=== PATIENT | male | born 1935 | race Caucasian/White ===

== ENCOUNTER 2017-02-03 15:53 | Inpatient (IN) ==
[2017-02-03] MEDS ORDERED: methylPREDNISolone 125 MG/2 ML VIAL IVP ONE (16:08)
[2017-02-03] MEDS ORDERED: Ipratropium/Albuterol Neb 3 ML IH ONE (16:08)
--- NOTE | 2017-02-03 16:14 | Emergency Department Note ---
Disposition Clinical Impression: Elevated troponin Community acquired pneumonia Qualifiers: Laterality: unspecified laterality Qualified Code(s): J18.9 - Pneumonia, unspecified organism Disposition: Admitted As Inpatient Condition: Fair SOB HPI - General Chief Complaint: ED Shortness of Breath/Dyspnea Stated Complaint: LIGIA Time Seen by Provider: 02/03/17 16:00 Source: patient Mode of arrival: private vehicle Limitations: no limitations Nursing Notes Reviewed: Yes Vital Signs Reviewed: Yes - History of Present Illness 81-year-old male history of CHF, COPD no oxygen dependency, status post CABG 6 years ago who presents to the emergency department with a chief complaint shortness of breath. Patient states he has baseline dyspnea reports a worsened 4 days ago. States that he has had worsening shortness of breath whenever he walks or does any activity. He reports fevers up to 102 at home over the last 4 days as well as productive cough with green sputum. He called his regular provider last night who called him in doxycycline for which he started. He denies a prior history of admission for respiratory issues. He does not wear oxygen at home. His was recently sick with similar symptoms. No chest pain, nausea, vomiting, diarrhea. No history of DVT or PE. Has a history of prostate cancer but is not treated by radiation or chemotherapy. Pt Subjective Complaint: shortness of breath Onset (ago): day(s) Context: recent illness Severity: moderate Consistency/Duration: constant Improves with: nothing, rest Worsens with: exertion Known history of: COPD, congestive heart failure Associated symptoms: Reports: fever, cough, sputum production. Denies: chest pain Treatment prior to arrival: none Cough present: Yes Cough Description: Involuntary Cough Frequency: Intermittent Sputum production: Yes - Related Data Home oxygen amount: none Home Medications Medication Instructions Recorded Confirmed Albuterol Neb [Proventil Neb] 2.5 mg IH TID 02/03/17 02/03/17 Albuterol Sulfate [Proair Hfa] 2 puff IH Q4H PRN 02/03/17 02/03/17 Aspirin Enteric Coated [Aspirin EC] 81 mg PO DAILY 02/03/17 02/03/17 Budesonide/Formoterol 160/4.5 2 puff IH BIDR 02/03/17 02/03/17 [Symbicort 160/4.5] Cetirizine HCl [Zyrtec] 10 mg PO DAILY 02/03/17 02/03/17 Cholecalciferol (D-3) [Vitamin D] 2,000 unit PO DAILY 02/03/17 02/03/17 Doxycycline Hyclate 100 mg PO BID 02/03/17 02/03/17 Furosemide [Lasix] 20 mg PO BID 02/03/17 02/03/17 Guaifenesin [Mucinex] 600 mg PO Q12H PRN 02/03/17 02/03/17 Insulin Glargine,Hum.rec.anlog 80 unit SQ DAILY 02/03/17 02/03/17 [Lantus Solostar] Losartan Potassium [Cozaar] 50 mg PO DAILY 02/03/17 02/03/17 Metoprolol [Lopressor] 12.5 mg PO BID 02/03/17 02/03/17 Pantoprazole Sodium [Protonix] 40 mg PO DAILY 02/03/17 02/03/17 Pravastatin Sodium [Pravachol] 20 mg PO HS 02/03/17 02/03/17 SitaGLIPtin [Januvia] 100 mg PO DAILY 02/03/17 02/03/17 Tamsulosin [Flomax] 0.4 mg PO DAILY 02/03/17 02/03/17 Tiotropium [Spiriva] 18 mcg IH 0700 02/03/17 02/03/17 Warfarin [Coumadin] 2 mg PO 1800 02/03/17 02/03/17 glyBURIDE [GlyBURIDE] 10 mg PO BIDWM 02/03/17 02/03/17 Allergies Allergy/AdvReac Type Severity Reaction Status Date / Time No Known Allergies Allergy Verified 02/03/17 15:58 All systems ED: reviewed and negative except as stated. Constitutional: Reports: fever Cardiovascular: Denies: chest pain Respiratory: Reports: cough, dyspnea, sputum production Gastrointestinal: Denies: abdominal pain, nausea, vomiting, diarrhea Past Medical History - Past Medical History Attestation: Yes The following information was validated with the patient. Source: patient Medical history: Reports: atrial fibrillation, COPD, diabetes, hyperlipidemia, hypertension Surgical history: Reports: appendectomy, cholecystectomy, coronary bypass (CABG) , herniorrhaphy Psychiatric history: Reports: no psych history - Social History Smoking Status: Former smoker Smokeless Tobacco Status: No Alcohol use: Reports: none Drug use: Reports: none Physical Exam - General Limitations: no limitations General appearance: alert, in distress - Head Head exam: atraumatic, normocephalic, normal inspection - Eye Eye exam: Present: normal appearance, EOMI - ENT ENT exam: normal exam - Neck Neck exam: Present: normal inspection - Chest Chest inspection: Present: normal inspection, symmetric chest wall rise - Respiratory Respiratory exam: Present: wheezes (Diffuse end expiratory wheezing with diminished breath sounds bilaterally) - Cardiovascular Cardiovascular exam: Present: regular rate, normal rhythm, normal heart sounds - Abdominal Exam Abdominal exam: Present: soft, Non-Tender. Absent: tenderness - Extremities Exam Extremities exam: Present: normal inspection, full ROM - Expanded Upper Extremity Exam Shoulder exam: Present: normal inspection, full ROM Arm exam: Present: normal inspection, full ROM Elbow exam: Present: normal inspection, full ROM Forearm/Wrist exam: Present: normal inspection, full ROM Hand exam: Present: normal inspection, full ROM - Expanded Lower Extremity Exam Hip/Pelvis exam: Present: normal inspection, full ROM Upper leg exam: Present: normal inspection, full ROM Knee exam: Present: normal inspection, full ROM Lower leg exam: Present: normal inspection, full ROM Ankle exam: Present: normal inspection, full ROM Foot/toe exam: Present: normal inspection, full ROM Neurovascular/Tendon exam: Absent: motor deficit, sensory deficit - Neurological Exam Neurological exam: Present: alert - Psychiatric Psychiatric exam: Present: normal affect - Skin Skin exam: Present: warm, dry, intact Course Course Narrative: Patient seen and examined. 94% on room air. Is working moderately hard to breathe. Plan obtain an EKG, chest x-ray as well as labs including troponin and BNP. We will also check him for influenza as he reports his significant other recently was ill. Patient will likely require admission. - Reevaluation(s) Reevaluation #1: Patient's troponin elevated over 0.1. Aspirin ordered. Chest x-ray reviewed showing bilateral pleural effusions with consolidative findings. Patient will be treated for community-acquired pneumonia with Rocephin and Zithromax. Vital Signs Temperature 97.3 F L 02/03/17 15:56 Pulse Rate 99 02/03/17 15:56 Respiratory Rate 44 02/03/17 15:56 Blood Pressure 167/94 02/03/17 15:56 O2 Sat by Pulse Oximetry 94 02/03/17 15:56 Temperature 98.0 F 02/03/17 19:22 Pulse Rate 95 02/03/17 19:22 Respiratory Rate 16 02/03/17 19:22 Blood Pressure 129/82 02/03/17 19:22 O2 Sat by Pulse Oximetry 91 02/03/17 19:22 Oxygen Delivery Oxygen Delivery Room Air Shortness of Breath/Dyspnea - MDM Narrative Medical decision making narrative: 81-year-old male presents to the ER due to shortness of breath for 4 days. Has had a fever and cough at home. with recent illness. He is well-appearing here with some mild respiratory distress. EKG demonstrates no acute ischemic findings. Chest x-ray with bilateral effusions and consolidative findings. Given his recent illness we will treat him for community acquired pneumonia. Patient given Rocephin and Zithromax as well as DuoNeb treatments and steroids. Noted to have an elevated troponin, given aspirin in the ED. Patient admitted to the hospitalist service. - Lab Data Lab results reviewed: Yes I reviewed the patient's lab results. Result diagrams: 02/03/17 16:25 02/03/17 16:25 Lab Results 02/03/17 02/03/17 02/03/17 Range/Units 16:25 16:25 16:25 WBC 7.9 (4.3-11.1) K/mcL RBC 4.51 (4.19-5.50) M/mcL Hgb 11.2 L (12.9-16.9) g/dL Hct 36.3 L (37.5-50.1) % MCV 80.5 L (83.0-100.0) fL MCH 24.8 L (28.0-33.3) pg MCHC 30.9 L (31.6-35.5) g/dL RDW 16.3 H (11.5-14.5) % Plt Count 366 (140-400) K/mcL MPV 9.1 L (9.4-12.4) fL Immature Gran % 0.3 (0-4) % Seg Neutrophils % 79.8 % Lymphocytes % 9.5 % Monocytes % 7.6 % Eosinophils % 2.3 % Basophils % 0.5 % Neutrophils # 6.3 (1.6-8.9) K/mcL Lymphocytes # 0.8 (0.6-4.6) K/mcL Monocytes # 0.6 (0.0-1.3) K/mcL Eosinophils # 0.2 (0.0-0.6) K/mcL Basophils # 0.0 (0.0-0.2) K/mcL PT (9.4-12.1) Seconds INR Sodium 139 (136-145) mEq/L Potassium 4.3 (3.5-5.1) mEq/L Chloride 106 (98-107) mEq/L Carbon Dioxide 27 (23-29) mEq/L BUN 20 (8-23) mg/dL Creatinine 1.42 H (0.70-1.30) mg/dL Est GFR ( Amer) 58 L (> 60) Est GFR (Non-Af Amer) 48 L (> 60) BUN/Creatinine Ratio 14 (6-26) Glucose 211 H (70-105) mg/dL Calculated Osmolality 297 (280-300) Calcium 9.2 (8.6-10.3) mg/dL Troponin I 0.13 H* (< 0.04) ng/mL B-Natriuretic Peptide (Less than 100) pg/mL 02/03/17 02/03/17 Range/Units 16:25 16:25 WBC (4.3-11.1) K/mcL RBC (4.19-5.50) M/mcL Hgb (12.9-16.9) g/dL Hct (37.5-50.1) % MCV (83.0-100.0) fL MCH (28.0-33.3) pg MCHC (31.6-35.5) g/dL RDW (11.5-14.5) % Plt Count (140-400) K/mcL MPV (9.4-12.4) fL Immature Gran % (0-4) % Seg Neutrophils % % Lymphocytes % % Monocytes % % Eosinophils % % Basophils % % Neutrophils # (1.6-8.9) K/mcL Lymphocytes # (0.6-4.6) K/mcL Monocytes # (0.0-1.3) K/mcL Eosinophils # (0.0-0.6) K/mcL Basophils # (0.0-0.2) K/mcL PT 25.8 H (9.4-12.1) Seconds INR 2.4 Sodium (136-145) mEq/L Potassium (3.5-5.1) mEq/L Chloride (98-107) mEq/L Carbon Dioxide (23-29) mEq/L BUN (8-23) mg/dL Creatinine (0.70-1.30) mg/dL Est GFR ( Amer) (> 60) Est GFR (Non-Af Amer) (> 60) BUN/Creatinine Ratio (6-26) Glucose (70-105) mg/dL Calculated Osmolality (280-300) Calcium (8.6-10.3) mg/dL Troponin I (< 0.04) ng/mL B-Natriuretic Peptide 180 H (Less than 100) pg/mL - Radiology Data Radiology results reviewed: Yes I reviewed the patient's radiology results. Chest X-Ray 02/03/17 16:08 IMPRESSION: 1. Stable cardiomegaly and chronic pulmonary venous hypertension. 2. New mild bilateral pleural effusions and lung base consolidation. The consolidative changes could represent atelectasis and/or pneumonia. D/ / 02/03/2017 16:50:18 Aba Allen MD / shwetha Interpreting Provider: Aba Allen MD - EKG Data EKG attestation: Yes I reviewed and interpreted this EKG. EKG results narrative: EKG demonstrates an ectopic atrial rhythm with a rate of 96 bpm. Normal axis. Normal intervals. Normal R-wave progression. Nonspecific ST-T wave changes in the inferior leads. No gross ST elevations or depressions. No acute ischemic findings. No significant changes from previous EKG dated 06/19/15. S.B.A.R. - Meghan.Rodolfo.AKamran Situation: Demographics, MOA Background: Presenting Complaint, Relevant PMH, Meds, & Allergies Assessment: Course and respsone to treatment, Patient/Family Expectation Recommendation: Barrier(s) to disposition, Recommendation based on pending studies, treatments, or consults S.B.AKamran Report Given to: Dr. Jeannie Willingham Repor Time: 17:57 Attestation Statement - Attestation Attestation: I, Mars Thomas DO, examined this patient [id number] and my medical decision-making was reviewed with Dr. Vidal Benjamin, Resident Physician. I agree with the documented findings, disposition and treatment plan as described except to the extent set forth below. Please see my progress notes for details. 81-year-old male presents to emergency room with complaint of shortness of breath. Symptoms of been coming on over the last several days. Patient is described productive cough and a fever of 102 at home. Patient was started on doxycycline medication yesterday by his primary care provider. Denies any other illness or symptoms at this time. Currently denying chest pain fevers chills nausea vomiting or diarrhea. Denies headache or vision changes this time. Patient's main complaint is progressive worsening exertional dyspnea. Patient has a history of pleural effusions. Chest x-ray EKG labs including troponin and BNP ordered at this time for evaluation of cardiac and pulmonary source of the symptoms. Patient is concerning for infectious etiology antibiotic regimen will be started as needed. Vital signs reviewed and otherwise unremarkable this point. Physical exam shows well. Male who is sitting upright in the bed. He has some shortness of breath while lying flat. Lungs are clear on initial evaluation there is no coarse breath sounds noted. Heart is regular with no murmurs. His intermittent cardiac irregularity consistent with his atrial fibrillation. He is currently on Coumadin so coagulation studies were ordered and will be resulted. Abdomen is soft nontender nondistended with no guarding or rigidity. Patient was offered from his upper procedures and laboratory in the emergency room but did have shortness of breath. He does not have any significant signs of pitting edema or fluid buildup in the lower extremities at this time. We will continue to monitor his treatment course is completed. The patient will need admission for what appears to be congestive heart failure/COPD exacerbation on with potential progression of his cardiac related disease. He does have a history of a CABG but again is denying any chest pain. No aggressive cardiac intervention will be started at this point. Disposition pending workup and treatment course. See detailed documentation of the physical exam, medical intervention, medical decision-making, disposition the resident physician no. 40 minutes of critical care participation this time. 1800 Patient on multiple medical issues including bilateral pneumonia, new onset effusions, elevated troponin, elevated BNP. All the symptoms are consistent with CHF exacerbation secondary to respiratory infection. Antibiotic regimen started. Patient was given aspirin. He has remained chest pain-free and denied any chest pain throughout the entire course of care this time. EKG shows atrial fibrillation with no acute signs of ST segment elevation. Patient will be admitted to hospitals for definitive management of what appears to be pulmonary infection causing cardiac abnormality.
[2017-02-03 16:35] LABS: Basophils % 0.5 %; Eosinophils # 0.2 K/mcL (0.0-0.6); Eosinophils % 2.3 %; Hematocrit 36.3 % (37.5-50.1); Hemoglobin 11.2 g/dL (12.9-16.9); Immature Granulocytes % 0.3 % (0-4); Lymphocytes # 0.8 K/mcL (0.6-4.6); Lymphocytes % 9.5 %; Mean Corpuscular HGB Conc 30.9 g/dL (31.6-35.5); Mean Corpuscular Hemoglobin 24.8 pg (28.0-33.3); Mean Corpuscular Volume 80.5 fL (83.0-100.0); Mean Platelet Volume 9.1 fL (9.4-12.4); Monocytes # 0.6 K/mcL (0.0-1.3); Monocytes % 7.6 %; Neutrophils # 6.3 K/mcL (1.6-8.9); Platelet Count 366 K/mcL (140-400); Red Blood Count 4.51 M/mcL (4.19-5.50); Red Cell Distribution Width 16.3 % (11.5-14.5); Segmented Neutrophils % 79.8 %
[2017-02-03 16:50] LABS: Calcium 9.2 mg/dL (8.6-10.3); INR 2.4; Potassium 4.3 mEq/L (3.5-5.1); Prothrombin Time 25.8 Seconds (9.4-12.1)
[2017-02-03] MEDS ORDERED: Aspirin 81 MG TAB.CHEW PO ONE (17:15)
[2017-02-03] MEDS ORDERED: cefTRIAXone 1,000 MG in Water for inj. (sterile) 10 ML IVP ONE (17:15)
[2017-02-03] MEDS ORDERED: Azithromycin 500 MG in D5% in Water 250 ML IVPB ONE (17:15)
[2017-02-03] MEDS ORDERED: Ondansetron ODT 4 MG TAB.RAPDIS SL PRN (20:19)
[2017-02-03] MEDS ORDERED: Acetaminophen 325 MG TABLET PO PRN (20:19)
[2017-02-03] MEDS ORDERED: Naloxone 0.4 MG/ML INJ IVP PRN (20:19)
[2017-02-03] MEDS ORDERED: Albuterol 2.5 MG/3 ML NEBULIZER IH PRN (20:21)
[2017-02-03] MEDS ORDERED: D5% in Water 1,000 ML IVC PRN (20:26)
[2017-02-03] MEDS ORDERED: *HR* Dextrose 50 % in Water (Syg) 50 ML SYRINGE IVP PRN (20:27)
[2017-02-03] MEDS ORDERED: Dextrose Gel 15 GM/37.5 ML TUBE PO PRN ×2 (20:27)
[2017-02-03] MEDS ORDERED: Insulin DETEMIR 100 UNIT/ML X5UNITS SQ SCH (21:00)
[2017-02-03] MEDS ORDERED: *HR* Warfarin 2 MG TABLET PO ONE (21:15)
--- NOTE | 2017-02-03 22:41 | Internal Med History&Physical ---
<Jennifer Gonzalez - Last Filed: 02/03/17 23:00> Date of Encounter: 02/03/17 Time of Encounter: 21:30 Assessment and Plan (1) Community acquired pneumonia Current visit: Yes Status: Acute Has been experiencing cough with green sputum production as well as short of breath or dyspnea fevers at home. Chest x-ray suggestive of pneumonia. Blood cultures were Steve patient was placed on vancomycin and Zosyn. We will perform MRSA swab and also check for possible aspiration and nothing by mouth for now and consult speech therapy for evaluation if negative-DC Zosyn and place on Rocephin Continue with oxygen titrated to maintain SPO2 greater than 92% Bronchodilators Qualifiers: Laterality: unspecified laterality Qualified Code(s): J18.9 - Pneumonia, unspecified organism (2) Elevated troponin Current visit: Yes Status: Acute Presently patient has not complained of any chest pain no ST-T wave abnormalities on EKG. We will continue to trend troponins Consult cardiology (3) Atrial fibrillation Current visit: Yes Status: Acute Presently controlled rate Continue with beta ana and Coumadin check INR daily to maintain INR 2-3 Qualifiers: Atrial fibrillation type: chronic Qualified Code(s): I48.2 - Chronic atrial fibrillation (4) Diabetes mellitus Current visit: No Status: Chronic Corky patient nothing by mouth for swine evaluation Accu-Cheks every 6 hours sliding scale insulin Qualifiers: Diabetes mellitus type: type 2 Diabetes mellitus complication status: without complication Diabetes mellitus correction insulin use: with correction use Qualified Code(s): E11.9 - Type 2 diabetes mellitus without complications ; Z79.4 - ferry terminal supervisor (current) use of insulin; Z79.4 - correction (current) use of insulin; Z79.4 - ferry terminal supervisor (current) use of insulin; Z79.4 - correction ( current) use of insulin (5) Hypertension Current visit: Yes Status: Chronic Presently controlled we will continue with Lasix and by mouth ana Qualifiers: Hypertension type: essential hypertension Qualified Code(s): I10 - Essential (primary) hypertension (6) DVT prophylaxis Current visit: Yes Status: Acute Patient is on Coumadin Internal Medicine - H&P: HPI Chief complaint: SOB Admitted From: Emergency Dept Plans for Post Hospital Care: Home History of present illness: Mr. Kirkland is a 81 year old male past medical history of CHF COPD non-oxygen dependent status post CABG approximately 6 years ago atrial fibrillation on Coumadin diabetes hyperlipidemia hypertension. According to the patient approximate 12 days ago he was diagnosed with the flu and was treated per his PCP. He was doing well up until approximate 4 days ago when he began to experiencing increasing shortness of breath on exertion. He also reports fevers up to 102 over the past 4 days as well as a productive cough with green sputum. He does admit that his has also been ill with similar symptoms He did call his PCP who did prescribe him doxycycline, however symptoms have not improved. He denies any chest pain nausea vomiting or diarrhea. He presented to the ER with the above complaints. It appears that on chest x-ray patient does have bilateral mild pleural effusions as well as lower lung base consolidations which could represent atelectasis and/or pneumonia. No leukocytosis troponin was 0.13 on presentation blood cultures were drawn and patient was given empiric antibiotics. He has been admitted for further workup and evaluation Past Med Surg Social Fam HX - Past Medical History Medical history: atrial fibrillation, COPD, diabetes, hyperlipidemia, hypertension Psychiatric history: no psych history - Past Surgical History Surgical History: appendectomy, cholecystectomy, coronary bypass (CABG), herniorrhaphy - Social History Smoking Status: Former smoker Smokeless Tobacco Status: No Alcohol use: none Drug use: none - Family History Sister Adopted: No Living Status: Age at : 86 Cause of : DC Hx Family Cardiac Disorders: Yes Hx Family Endocrine Disorder: Yes (DM) Internal Medicine - H&P: Meds Albuterol Neb [Proventil Neb] 2.5 mg IH TID 02/03/17 [History] Albuterol Sulfate [Proair Hfa] 2 puff IH Q4H PRN 02/03/17 [History] Aspirin Enteric Coated [Aspirin EC] 81 mg PO DAILY 02/03/17 [History] Budesonide/Formoterol 160/4.5 [Symbicort 160/4.5] 2 puff IH BIDR 02/03/17 [ History] Cetirizine HCl [Zyrtec] 10 mg PO DAILY 02/03/17 [History] Cholecalciferol (D-3) [Vitamin D] 2,000 unit PO DAILY 02/03/17 [History] Doxycycline Hyclate 100 mg PO BID 02/03/17 [History] Furosemide [Lasix] 20 mg PO BID 02/03/17 [History] Guaifenesin [Mucinex] 600 mg PO Q12H PRN 02/03/17 [History] Insulin Glargine,Hum.rec.anlog [Lantus Solostar] 80 unit SQ DAILY 02/03/17 [ History] Losartan Potassium [Cozaar] 50 mg PO DAILY 02/03/17 [History] Metoprolol [Lopressor] 12.5 mg PO BID 02/03/17 [History] Pantoprazole Sodium [Protonix] 40 mg PO DAILY 02/03/17 [History] Pravastatin Sodium [Pravachol] 20 mg PO HS 02/03/17 [History] SitaGLIPtin [Januvia] 100 mg PO DAILY 02/03/17 [History] Tamsulosin [Flomax] 0.4 mg PO DAILY 02/03/17 [History] Tiotropium [Spiriva] 18 mcg IH 0700 02/03/17 [History] Warfarin [Coumadin] 2 mg PO 1800 02/03/17 [History] glyBURIDE [GlyBURIDE] 10 mg PO BIDWM 02/03/17 [History] 3 Allergy/AdvReac Type Severity Reaction Status Date / Time No Known Allergies Allergy Verified 02/03/17 15:58 All Systems PM: A 10-system review of systems was performed and is negative for pertinent findings except as documented above in the HPI. - Constitutional Constitutional: fever(s), no chills, no night sweats - EENT Eyes: no change in vision, no discharge, no pain, no photophobia Nose, mouth and throat: no dysphagia, no nasal discharge, no neck pain, no sore throat - Cardiovascular Cardiovascular ROS IM: no chest pain, no diaphoresis, no dyspnea, no lightheadedness, no palpitations, no syncope - Respiratory Respiratory: cough, dyspnea on exertion, change in phlegm color, no dyspnea, no wheezing, no excessive phlegm production - Gastrointestinal Gastrointestinal: no abdominal pain, no diarrhea, no hematemesis, no hematochezia, no melena, no nausea, no vomiting - Musculoskeletal Musculoskeletal ROS IM: no numbness, no tingling - Integumentary Integumentary IM: no rash, no unusual bruising - Neurological Neurological ROS: no confusion, no convulsions, no focal weakness, no numbness, no tingling, no tremor(s) - Hematologic/Lymphatic Hematologic/Lymphatic: no easy bruising - Constitutional Vitals: Temp Pulse Resp BP Pulse Ox 97.5 F L 94 16 166/73 94 02/03/17 22:34 02/03/17 22:34 02/03/17 22:34 02/03/17 22:34 02/03/17 22:34 General appearance: Present: A&O X 3 - Head Head exam: Present: atraumatic, normocephalic - Eye Eye exam: Present: PERRL, conjuntiva pink, sclera anicteric Pupils: Present: PERRL - Neck Neck exam general surgery: Present: supple, trachea midline. Absent: lymphadenopathy - Respiratory Respiratory exam: Present: rhonchi. Absent: accessory muscle use, rales, wheezes - Cardiovascular Cardiovascular exam: Present: RRR, +S1, +S2. Absent: diastolic murmur, gallop, rubs, systolic murmur - GI/Abdominal GI/Abdominal exam: Present: normal bowel sounds, soft, no peritoneal signs. Absent: distended, tenderness - Extremities Exam Extremities exam: Present: warm, radial pulses palpable and symmetrical. Absent : calf tenderness, cyanotic, pedal edema - Neurological Exam Neurological exam: Present: CN II-XII intact, oriented X3, no focal deficits. Absent: pronater drift, facial droop, speech deficit - Skin Skin exam: Present: dry, intact Internal Med - H&P Results - Labs CBC & Chem 7: 02/03/17 16:25 02/03/17 16:25 Labs: Cardiac Enzymes 02/03/17 Range/Units 21:45 Troponin I 0.12 H* (< 0.04) ng/mL - EKG Data EKG comments: 02/03/17 23:00 Atrial fibrillation - Diagnostic Studies Other Images Additional comments: Chest X-Ray 02/03/17 16:08 IMPRESSION: 1. Stable cardiomegaly and chronic pulmonary venous hypertension. 2. New mild bilateral pleural effusions and lung base consolidation. The consolidative changes could represent atelectasis and/or pneumonia. D/ /03/2017 16:50:18 Aba lAlen MD / shwetha Interpreting Provider: Aba Allen MD <Sofia Mauro N - Last Filed: 02/04/17 09:21> Date of Encounter: 02/03/17 Internal Medicine - H&P: HPI History of present illness: Mr. Kirkland is a 81 year old male All Systems PM: A 10-system review of systems was performed and is negative for pertinent findings except as documented above in the HPI. - Constitutional Vitals: Temp Pulse Resp BP Pulse Ox 98.4 F 94 17 116/65 93 02/04/17 07:53 02/04/17 07:53 02/04/17 07:53 02/04/17 07:53 02/04/17 09:12 Internal Med - H&P Results - Labs CBC & Chem 7: 02/04/17 04:43 02/04/17 04:43 Labs: Short CBC 02/04/17 Range/Units 04:43 WBC 5.9 (4.3-11.1) K/mcL Hgb 11.0 L (12.9-16.9) g/dL Hct 35.1 L (37.5-50.1) % Plt Count 336 (140-400) K/mcL Neutrophils # 5.4 (1.6-8.9) K/mcL BMP 02/04/17 04:43 Sodium 139 Potassium 4.4 Chloride 105 Carbon Dioxide 27 BUN 22 Creatinine 1.32 H Glucose 196 H Calcium 8.9 Cardiac Enzymes 02/03/17 02/04/17 Range/Units 21:45 04:43 Troponin I 0.12 H* 0.09 H* (< 0.04) ng/mL - Attending Attestation Patient seen and examined, plan discussed with nurse practitioner, and continue with history and physical as listed above. 81year-old male with past medical history of COPD came to the hospital was complaining of productive cough with yellowish sputum worsening shortness of breath with mild exertion Chest bilateral basilar crackles with prolonged expiratory phase and expiratory wheezing Heart S1-S2 normal regular rate and rhythm Abdomen soft nontender nondistended Extremity no edema Assessment and plan 1-COPD exacerbation 2-pulmonary hypertension Mild elevation of troponin add aerosol treatment, Mucinex BID. add steroids , Incentive spirometry , will consult cardiology , Follow ACS protocol
[2017-02-03] MEDS: Piperacillin/Tazobactam 3.375 GM/200 ML BAG IVPB SCH (23:52)
[2017-02-04] MEDS: Budesonide/Formoterol 160/4.5 MDI IH SCH ×4 (00:02→20:10)
[2017-02-04] MEDS: Ipratropium/Albuterol Neb 3 ML IH SCH ×7 (00:03→23:36)
[2017-02-04] MEDS: Insulin LISPRO 300 UNITS/3 ML VIAL SQ SCH ×4 (00:14→18:26)
[2017-02-04 05:19] LABS: Basophils % 0.2 %; Hematocrit 35.1 % (37.5-50.1); Immature Granulocytes % 0.3 % (0-4); Lymphocytes # 0.4 K/mcL (0.6-4.6); Lymphocytes % 7.1 %; Mean Corpuscular HGB Conc 31.3 g/dL (31.6-35.5); Mean Corpuscular Hemoglobin 25.4 pg (28.0-33.3); Mean Corpuscular Volume 81.1 fL (83.0-100.0); Mean Platelet Volume 9.6 fL (9.4-12.4); Monocytes # 0.1 K/mcL (0.0-1.3); Monocytes % 0.8 %; Neutrophils # 5.4 K/mcL (1.6-8.9); Platelet Count 336 K/mcL (140-400); Red Blood Count 4.33 M/mcL (4.19-5.50); Red Cell Distribution Width 16.2 % (11.5-14.5); Segmented Neutrophils % 91.6 %
[2017-02-04 05:21] LABS: INR 2.6; Prothrombin Time 28.4 Seconds (9.4-12.1)
[2017-02-04] MEDS ORDERED: Insulin LISPRO 300 UNITS/3 ML VIAL SQ SCH (07:30)
[2017-02-04] MEDS: Tiotropium 18 MCG inhalation IH SCH (07:36)
[2017-02-04] MEDS ORDERED: Furosemide 20 MG TABLET PO SCH (08:00)
--- NOTE | 2017-02-04 08:53 | Cardiology Consult Note ---
<Jose Gunn - Last Filed: 02/04/17 14:32> Date of Encounter: 02/04/17 Time of Encounter: 08:15 Assessment and Plan (1) Elevated troponin Current Visit: Yes Status: Acute Patient presents to the hospital with an elevated troponin level of 0.13. Troponins trended as follows: 0.13, 0.12, 0.09. Possibly due to demand ischemia. EKG performed in the emergency department demonstrated atrial fibrillation without acute ST changes. Plan: -Continuous cardiac monitoring. -Repeat ECHO (2) CHF (congestive heart failure) Current Visit: Yes Status: Acute Patient has a known history of CHF. BNP elevated at 180. Admitted to having shortness of breath worse with lying flat. Last ECHO was performed on 06/20/16; demonstrated the following: LVEF 55-60%. -Normal LV chamber size, wall thickness and function. -Atypical septal motion consistent with post-operative status. -Indeterminate diastolic function. -RV was not well visualized; Grossly, it appears to be normal in function. -Moderately dilated LA. -Mild HTN. -Estimated RVSP: 39 mmHg; -No significant valvular disease identified. CXR demonstrated followin. Stable cardiomegaly and chronic pulmonary venous HTN. 2. New mild bilateral pleural effusions and lung base consolidation. Plan: -Home Lasix: 20 mg PO BID. -Continuous cardiac monitoring Qualifiers: Qualified Code(s): I50.9 - Heart failure, unspecified (3) Atrial fibrillation Current Visit: Yes Status: Acute Known history of atiral fibrillation Currently on Coumadin Qualifiers: Atrial fibrillation type: chronic Qualified Code(s): I48.2 - Chronic atrial fibrillation (4) Hypertension Current Visit: Yes Status: Chronic Patient has a known past medical history of hypertension. Currently well controlled at 116/65. Plan: -Losartan 50 mg PO daily -Lopressor 12.5 mg PO BID Qualifiers: Hypertension type: essential hypertension Qualified Code(s): I10 - Essential (primary) hypertension Discussion w patient/family: The assessment and plan as outlined above was discussed with the patient and/or family members who expressed understanding and agreement. All questions were answered. Thank you for involving us in the care of your patient. Please call with any questions. History of Present Illness Consult date: 02/04/17 Chief complaint: Shortness of breath History of present illness: Mr. Kirkland is an 81-year-old male with a past medical history of CHF, COPD with no oxygen dependency, status post CABG 6 years ago who presented to the emergency department on 02/03/17 with a chief complaint of shortness of breath. Patient states that he has baseline dyspnea, which worsened 4 days ago. He reported that his shortness of breath was worse whenever he physically exerted himself. He reported a fever as high as 102 degrees over the last 4 days accompanied by productive cough with green sputum. Patient called his regular provider who provided him with doxycycline, which she started taking. Patient admits that his was recently sick with similar symptoms. He denies any prior admissions for respiratory issues. Upon admission to the hospital, patient had mild respiratory distress. Patient' s shortness of breath was worse while lying flat. Chest x-ray demonstrated bilateral effusions and consolidative findings. EKG showed atrial fibrillation with no acute ischemic findings. Patient was started initially on Rocephin and Zithromax. He was also given DuoNeb, aspirin, and Solu-Medrol. Patient was noted to have an elevated troponin on arrival at 0.13. He was admitted for acute CHF exacerbation secondary to respiratory infection. Antibiotic regimen of azithromycin and Zosyn were started. Troponins were trended; 0.13, 0.12, 0.09. Patient was seen and examined at bedside this morning. He denies having any chest pain or respiratory distress at the present time. Currently on O2 via nasal cannula. Denies any cough, fever, chills, shortness of breath. Patient is currently resting comfortably in bed and has no complaints at this time. Past Med Surg Social Fam HX - Past Medical History Medical history: atrial fibrillation, COPD, diabetes, hyperlipidemia, hypertension Psychiatric history: no psych history - Past Surgical History Surgical History: appendectomy, cholecystectomy, coronary bypass (CABG), herniorrhaphy - Social History Smoking Status: Former smoker Smokeless Tobacco Status: No Alcohol use: none Drug use: none - Family History Sister Adopted: No Living Status: Age at : 86 Cause of : [place] Hx Family Cardiac Disorders: Yes Hx Family Endocrine Disorder: Yes (DM) Medications and Allergies Albuterol Neb [Proventil Neb] 2.5 mg IH TID 02/03/17 [History] Albuterol Sulfate [Proair Hfa] 2 puff IH Q4H PRN 02/03/17 [History] Aspirin Enteric Coated [Aspirin EC] 81 mg PO DAILY 02/03/17 [History] Budesonide/Formoterol 160/4.5 [Symbicort 160/4.5] 2 puff IH BIDR 02/03/17 [ History] Cetirizine HCl [Zyrtec] 10 mg PO DAILY 02/03/17 [History] Cholecalciferol (D-3) [Vitamin D] 2,000 unit PO DAILY 02/03/17 [History] Doxycycline Hyclate 100 mg PO BID 02/03/17 [History] Furosemide [Lasix] 20 mg PO BID 02/03/17 [History] Guaifenesin [Mucinex] 600 mg PO Q12H PRN 02/03/17 [History] Insulin Glargine,Hum.rec.anlog [Lantus Solostar] 80 unit SQ DAILY 02/03/17 [ History] Losartan Potassium [Cozaar] 50 mg PO DAILY 02/03/17 [History] Metoprolol [Lopressor] 12.5 mg PO BID 02/03/17 [History] Pantoprazole Sodium [Protonix] 40 mg PO DAILY 02/03/17 [History] Pravastatin Sodium [Pravachol] 20 mg PO HS 02/03/17 [History] SitaGLIPtin [Januvia] 100 mg PO DAILY 02/03/17 [History] Tamsulosin [Flomax] 0.4 mg PO DAILY 02/03/17 [History] Tiotropium [Spiriva] 18 mcg IH 0700 02/03/17 [History] Warfarin [Coumadin] 2 mg PO 1800 02/03/17 [History] glyBURIDE [GlyBURIDE] 10 mg PO BIDWM 02/03/17 [History] 3 Allergy/AdvReac Type Severity Reaction Status Date / Time No Known Allergies Allergy Verified 02/03/17 15:58 All Systems Review: A 10-system review of systems was performed and is negative for pertinent findings except as documented above in the HPI. - Constitutional Constitutional: no fever(s), no malaise, no weight gain - Cardiovascular Cardiovascular: no chest pain at rest, no dyspnea at rest, no dyspnea on exertion, no radiating jaw, neck or arm pain, no syncope Physical Examination Vital Signs, Last 4 Hours Temp Pulse Resp BP Pulse Ox 02/04/17 07:53 98.4 F 94 17 116/65 93 02/04/17 07:36 18 91 General: Conversant, No Apparent Distress HEENT: Atraumatic, Normocephaly, Mucus Membranes Moist Neck: No JVD, Normal carotid pulses Cardiac: Normal S1 and S2, No Murmur Lungs: Normal Breath Sounds, No Wheeze, Rales, Rhonchi Neuro: Alert and responsive Skin: No rashes noted on visualized skin Musculoskeletal: No Chest Wall Tenderness Extremities: No Cyanosis, Normal Pulses Results 02/04/17 04:43 02/04/17 04:43 Lab Results 02/03/17 02/04/17 02/04/17 21:45 04:43 04:43 WBC 5.9 Hgb 11.0 L Hct 35.1 L Plt Count 336 INR Troponin I 0.12 H* 0.09 H* 02/04/17 04:43 WBC Hgb Hct Plt Count INR 2.6 Troponin I Consult Discharge Plan - Plan Referrals: Hans Tee DO [Primary Care Provider] - 02/17/17 2:15 pm <Julia Monroy - Last Filed: 02/04/17 16:44> Date of Encounter: 02/04/17 - Attending Attestation I examined this patient and my medical decision-making was reviewed with the Resident Physician. I agree with the documented findings, disposition and treatment plan. Mr. Kirkland is a very pleasant 81 year old male presenting with SOB and fever being treated for a pneumonia. Incidentally discovered are elevated troponins which are flat and adynamic in this setting. ECG demonstrating known AFIB without acute ischemic changes. Last echo done in June demonstrated normal LV systolic function and probable normal RV function. Patient is not having chest pain. Troponins do not appear to represent an acute coronary syndrome. Recommend performing an echo for re-evaluation of function. If no significant changes in LV function, anticipate we will sign off. Can consider outpatient stress testing once patient clinically improves, if appropriate. Continue asa, statin, BB. Patient is anticoagulated on coumadin with therapeutic INR for AFIB. Assessment and Plan Discussion w patient/family: The assessment and plan as outlined above was discussed with the patient and/or family members who expressed understanding and agreement. All questions were answered. Thank you for involving us in the care of your patient. Please call with any questions. History of Present Illness History of present illness: Mr. Kirkland is a 81 year old male All Systems Review: A 10-system review of systems was performed and is negative for pertinent findings except as documented above in the HPI. Physical Examination Vital Signs, Last 4 Hours Pulse Resp BP Pulse Ox 02/04/17 15:28 75 18 125/71 99 02/04/17 15:26 18 93 Results 02/04/17 04:43 02/04/17 04:43 Lab Results 02/03/17 02/04/17 02/04/17 21:45 04:43 04:43 WBC 5.9 Hgb 11.0 L Hct 35.1 L Plt Count 336 INR Sodium 139 Potassium 4.4 Chloride 105 Carbon Dioxide 27 BUN 22 Creatinine 1.32 H Glucose 196 H Calcium 8.9 Troponin I 0.12 H* 02/04/17 02/04/17 04:43 04:43 WBC Hgb Hct Plt Count INR 2.6 Sodium Potassium Chloride Carbon Dioxide BUN Creatinine Glucose Calcium Troponin I 0.09 H*
[2017-02-04] MEDS ORDERED: cefTRIAXone 1,000 MG in Water for inj. (sterile) 10 ML IVP SCH (09:00)
[2017-02-04 09:12] LABS: BUN/Creatinine Ratio 17 (6-26); Blood Urea Nitrogen 22 mg/dL (8-23); Calcium 8.9 mg/dL (8.6-10.3); Carbon Dioxide 27 mEq/L (23-29); Chloride 105 mEq/L (98-107); Glucose 196 mg/dL (70-105); Osmolality,Calculated 297 (280-300); Potassium 4.4 mEq/L (3.5-5.1); Sodium 139 mEq/L (136-145); eGFR For African Americans > 60 (> 60); eGFR For Non-African Americans 52 (> 60)
[2017-02-04] MEDS: Aspirin Enteric Coated 81 MG Tablet PO SCH (10:30)
[2017-02-04] MEDS: Piperacillin/Tazobactam 3.375 GM/200 ML BAG IVPB SCH ×2 (10:30→17:02)
[2017-02-04] MEDS: Cholecalciferol (D-3) 1,000 UNIT TABLET PO SCH (10:30)
[2017-02-04] MEDS: Loratadine 10 MG TABLET PO SCH (10:31)
[2017-02-04] MEDS: Azithromycin 500 MG in D5% in Water 250 ML IVPB SCH (10:32)
[2017-02-04] MEDS: Insulin DETEMIR 100 UNIT/ML X5UNITS SQ SCH (10:41)
--- NOTE | 2017-02-04 15:39 | Internal Med Progress Note ---
Date of Encounter: 02/04/17 Time of Encounter: 15:37 - Assessment and plan (1) Community acquired pneumonia Current Visit: Yes Status: Acute Assessment and plan: presented with worsening shortness of breath, subjective fevers and productive cough. CXR with with a new patchy perihilar and lung base consolidation concerning for pneumonia. Continue IV azithromycin, Rocephin. Urinary antigens , respiratory PCR, sputum culture pending. Qualifiers: Laterality: unspecified laterality Qualified Code(s): J18.9 - Pneumonia, unspecified organism (2) Pleural effusion Current Visit: Yes Status: Acute Assessment and plan: CXR with new mild bilateral pleural effusions more prominent on the right. Likely contributing to shortness of breath. S/p right thoracentesis on 2016 with [address] pending for further characterization. (3) Elevated troponin Current Visit: Yes Status: Acute Assessment and plan: troponin peaked at 0.13 and trended down. Asymptomatic, denied chest pain. Cardiology consulted. Repeat TTE pending (4) Atrial fibrillation Current Visit: Yes Status: Acute Assessment and plan: per hx. Rate controlled. Cont home BB, coumadin Qualifiers: Atrial fibrillation type: chronic Qualified Code(s): I48.2 - Chronic atrial fibrillation (5) CHF (congestive heart failure) Current Visit: Yes Status: Acute Assessment and plan: per hx. 07/02 TTE with EF 55%, indeterminate diastolic dysfunction. CXR without evidence of acute CHF. BNP 180. Likely does not appear overloaded. Continue home diuretic. Qualifiers: Qualified Code(s): I50.9 - Heart failure, unspecified (6) Diabetes mellitus Current Visit: No Status: Chronic Assessment and plan: per hx. holding home oral hypoglycemics. Continue home long-acting. SSI. Monitor blood sugar and titrate PRN Qualifiers: Diabetes mellitus type: type 2 Diabetes mellitus complication status: without complication Diabetes mellitus rat exterminator insulin use: with rat exterminator use Qualified Code(s): E11.9 - Type 2 diabetes mellitus without complications ; Z79.4 - long term care administrator (current) use of insulin; Z79.4 - skilled nursing (current) use of insulin; Z79.4 - skilled nursing (current) use of insulin; Z79.4 - long term care administrator ( current) use of insulin (7) Hypertension Current Visit: Yes Status: Chronic Assessment and plan: per hx. BP controlled. Continue home BP medication. Monitor BP and titrate PRN Qualifiers: Hypertension type: essential hypertension Qualified Code(s): I10 - Essential (primary) hypertension (8) DVT prophylaxis Current Visit: Yes Status: Acute Assessment and plan: coumadin - Subjective Interval history: Seen and examined at bedside. Patient is new to me, information obtained from chart review and patient report. Patient says he feels slightly improved from presentation. Still with shortness of breath and cough. Symptoms worse with activity and relieved with rest. No chest pain. - Constitutional Vitals: Temp Pulse Resp BP Pulse Ox 98.0 F 75 18 125/71 99 02/04/17 12:06 02/04/17 15:28 02/04/17 15:28 02/04/17 15:28 02/04/17 15:28 General appearance: Present: A&O X 3, morbidly obese, no acute distress - Head Head exam: Present: atraumatic, normocephalic - Eye Eye exam: Present: PERRL, conjuntiva pink, sclera anicteric Pupils: Present: PERRL - Neck Neck exam general surgery: Present: supple, trachea midline. Absent: lymphadenopathy - Respiratory Respiratory exam: Present: rhonchi. Absent: accessory muscle use, rales, wheezes - Cardiovascular Cardiovascular exam: Present: RRR, +S1, +S2. Absent: diastolic murmur, gallop, rubs, systolic murmur - GI/Abdominal GI/Abdominal exam: Present: normal bowel sounds, soft, no peritoneal signs. Absent: distended, tenderness - Extremities Exam Extremities exam: Present: warm, radial pulses palpable and symmetrical. Absent : calf tenderness, cyanotic, pedal edema - Neurological Exam Neurological exam: Present: CN II-XII intact, oriented X3, no focal deficits. Absent: pronater drift, facial droop, speech deficit - Skin Skin exam: Present: dry, intact Internal Medicine: Result - Labs CBC & Chem 7: 02/04/17 04:43 02/04/17 04:43 Labs: Short CBC 02/04/17 Range/Units 04:43 WBC 5.9 (4.3-11.1) K/mcL Hgb 11.0 L (12.9-16.9) g/dL Hct 35.1 L (37.5-50.1) % Plt Count 336 (140-400) K/mcL Neutrophils # 5.4 (1.6-8.9) K/mcL BMP 02/04/17 04:43 Sodium 139 Potassium 4.4 Chloride 105 Carbon Dioxide 27 BUN 22 Creatinine 1.32 H Glucose 196 H Calcium 8.9 Cardiac Enzymes 02/03/17 02/04/17 Range/Units 21:45 04:43 Troponin I 0.12 H* 0.09 H* (< 0.04) ng/mL - ABG Interpretation ABG results: PT/INR, D-dimer PT 28.4 Seconds (9.4-12.1) H 02/04/17 04:43 Consult Discharge Plan - Plan Referrals: Hans Tee DO [Primary Care Provider] - 02/17/17 2:15 pm
[2017-02-04] MEDS ORDERED: *HR* Warfarin 1 MG TABLET PO ONE (18:00)
[2017-02-04] MEDS ORDERED: Warfarin perPT PO PRN (18:00)
--- NOTE | 2017-02-04 19:59 | Electrocardiograph Report ---
[address] [place] [id number] Test Date: 2017-02-03 Pat Name: Yordan Kirkland Department: 103 Room: 3B11 Gender: M Cylinder Honer: TMMaryann : 1935 Requested By: Vidal Benjamin Order Number: [id number] Reading MD: Manuelito Rivera MD Measurements Intervals [place] Rate: 96 P: [place]: 0 QRS: 89 QRSD: 84 T: 28 QT: 350 QTc: 404 Interpretive Statements ATRIAL FIBRILLATION Electronically Signed On 02-04-2017 19:57:40 EST by Manuelito Rivera MD
[2017-02-04] MEDS: Benzonatate 100 MG CAPSULE PO PRN (20:53)
[2017-02-05] MEDS: Piperacillin/Tazobactam 3.375 GM/200 ML BAG IVPB SCH ×3 (00:09→16:26)
[2017-02-05] MEDS: Insulin LISPRO 300 UNITS/3 ML VIAL SQ SCH ×4 (00:14→18:45)
[2017-02-05 03:14] LABS: INR 3.5; Prothrombin Time 38.4 Seconds (9.4-12.1)
[2017-02-05 03:29] LABS: Calcium 8.7 mg/dL (8.6-10.3); Potassium 3.8 mEq/L (3.5-5.1)
[2017-02-05] MEDS: Ipratropium/Albuterol Neb 3 ML IH SCH ×6 (04:09→23:07)
[2017-02-05] MEDS: Benzonatate 100 MG CAPSULE PO PRN (04:15)
--- NOTE | 2017-02-05 08:06 | Event Note ---
Date of Encounter: 02/05/17 Time of Encounter: 08:05 - Cardiology Event Note Echo shows LVEF 55-60%, Normal LV chamber size and function, Atypical septal motion consistent with post-operative status. Findings unchanged from prior TTE performed 06/2016. Cardiology signing off. Reconsult PRN. Will coordinate outpt follow-up.
[2017-02-05] MEDS: Tiotropium 18 MCG inhalation IH SCH (08:19)
[2017-02-05] MEDS: Budesonide/Formoterol 160/4.5 MDI IH SCH ×2 (08:22→19:48)
[2017-02-05] MEDS: Aspirin Enteric Coated 81 MG Tablet PO SCH (08:44)
[2017-02-05] MEDS: Furosemide 40 MG TABLET PO SCH (08:44)
[2017-02-05] MEDS: Cholecalciferol (D-3) 1,000 UNIT TABLET PO SCH (08:44)
[2017-02-05] MEDS: Loratadine 10 MG TABLET PO SCH (08:45)
[2017-02-05] MEDS: Azithromycin 500 MG in D5% in Water 250 ML IVPB SCH (08:45)
[2017-02-05] MEDS: Insulin DETEMIR 100 UNIT/ML X5UNITS SQ SCH (09:22)
[2017-02-05 10:31] LABS: Basophils % 0.2 %; Eosinophils # 0.1 K/mcL (0.0-0.6); Eosinophils % 0.8 %; Hematocrit 32.6 % (37.5-50.1); Hemoglobin 10.1 g/dL (12.9-16.9); Immature Granulocytes % 0.8 % (0-4); Lymphocytes % 9.4 %; Mean Corpuscular Hemoglobin 25.4 pg (28.0-33.3); Mean Corpuscular Volume 81.9 fL (83.0-100.0); Mean Platelet Volume 9.6 fL (9.4-12.4); Monocytes # 0.6 K/mcL (0.0-1.3); Monocytes % 5.6 %; Neutrophils # 8.7 K/mcL (1.6-8.9); Platelet Count 336 K/mcL (140-400); Red Blood Count 3.98 M/mcL (4.19-5.50); Red Cell Distribution Width 16.6 % (11.5-14.5); Segmented Neutrophils % 83.2 %
--- NOTE | 2017-02-05 18:55 | Internal Med Progress Note ---
Date of Encounter: 02/05/17 Time of Encounter: 11:00 - Assessment and plan (1) Community acquired pneumonia Current Visit: Yes Status: Acute Assessment and plan: CXR with with a new patchy perihilar and lung base consolidation concerning for pneumonia. Continue IV azithromycin, Rocephin. Urinary antigens, respiratory PCR, sputum culture pending. Qualifiers: Laterality: unspecified laterality Qualified Code(s): J18.9 - Pneumonia, unspecified organism (2) Diabetes mellitus Current Visit: No Status: Chronic Assessment and plan: Continue holding home oral hypoglycemics. Continue home long-acting. SSI. Monitor blood sugar and titrate PRN Qualifiers: Diabetes mellitus type: type 2 Diabetes mellitus complication status: without complication Diabetes mellitus salvage determiner insulin use: with salvage determiner use Qualified Code(s): E11.9 - Type 2 diabetes mellitus without complications ; Z79.4 - senior care (current) use of insulin; Z79.4 - dedicated intermodal truck driver (current) use of insulin; Z79.4 - senior care (current) use of insulin; Z79.4 - dedicated intermodal truck driver ( current) use of insulin (3) Hypertension Current Visit: Yes Status: Chronic Assessment and plan: per hx. BP controlled. Continue home BP medication. Monitor BP and titrate PRN Qualifiers: Hypertension type: essential hypertension Qualified Code(s): I10 - Essential (primary) hypertension (4) Pleural effusion Current Visit: Yes Status: Acute Assessment and plan: CXR with new mild bilateral pleural effusions more prominent on the right. Likely contributing to shortness of breath. S/p right thoracentesis on 04/29/2016 with [address] pending for further characterization. - Subjective Interval history: Patient reports show some improvement with breathing. - Constitutional Vitals: Temp Pulse Resp BP Pulse Ox 98.4 F 104 16 131/60 95 02/05/17 18:11 02/05/17 18:11 02/05/17 18:11 02/05/17 18:11 02/05/17 18:11 General appearance: Present: A&O X 3, morbidly obese, no acute distress - Respiratory Respiratory exam: Present: CTAB. Absent: accessory muscle use, rales, rhonchi, wheezes - Cardiovascular Cardiovascular exam: Present: RRR, +S1, +S2. Absent: diastolic murmur, gallop, rubs, systolic murmur Internal Medicine: Result - Labs CBC & Chem 7: 02/05/17 10:21 02/05/17 02:29 Labs: Short CBC 02/05/17 Range/Units 10:21 WBC 10.4 D (4.3-11.1) K/mcL Hgb 10.1 L (12.9-16.9) g/dL Hct 32.6 L (37.5-50.1) % Plt Count 336 (140-400) K/mcL Neutrophils # 8.7 (1.6-8.9) K/mcL BMP 02/05/17 02:29 Sodium 143 Potassium 3.8 Chloride 105 Carbon Dioxide 28 BUN 33 H Creatinine 1.71 H Glucose 135 H Calcium 8.7 - ABG Interpretation ABG results: PT/INR, D-dimer PT 38.4 Seconds (9.4-12.1) H 02/05/17 02:29 Consult Discharge Plan - Plan Referrals: Hans Tee DO [Primary Care Provider] - 02/17/17 2:15 pm
[2017-02-06] MEDS: Piperacillin/Tazobactam 3.375 GM/200 ML BAG IVPB SCH ×2 (00:22→10:28)
[2017-02-06] MEDS: Insulin LISPRO 300 UNITS/3 ML VIAL SQ SCH ×3 (00:50→11:43)
[2017-02-06] MEDS: Ipratropium/Albuterol Neb 3 ML IH SCH ×3 (03:41→11:34)
[2017-02-06 05:51] LABS: INR 2.9; Prothrombin Time 32.4 Seconds (9.4-12.1)
[2017-02-06] MEDS: Budesonide/Formoterol 160/4.5 MDI IH SCH (07:26)
[2017-02-06] MEDS: Aspirin Enteric Coated 81 MG Tablet PO SCH (09:00)
[2017-02-06] MEDS: Loratadine 10 MG TABLET PO SCH (09:02)
[2017-02-06] MEDS: Furosemide 40 MG TABLET PO SCH (09:03)
[2017-02-06] MEDS: Cholecalciferol (D-3) 1,000 UNIT TABLET PO SCH (09:04)
[2017-02-06] MEDS: Azithromycin 500 MG in D5% in Water 250 ML IVPB SCH (09:14)
[2017-02-06] MEDS: Insulin DETEMIR 100 UNIT/ML X5UNITS SQ SCH (09:15)
[2017-02-06 09:37] LABS: Basophils % 0.4 %; Eosinophils # 0.2 K/mcL (0.0-0.6); Hematocrit 34.4 % (37.5-50.1); Hemoglobin 10.7 g/dL (12.9-16.9); Immature Granulocytes % 0.5 % (0-4); Lymphocytes % 12.2 %; Mean Corpuscular HGB Conc 31.1 g/dL (31.6-35.5); Mean Corpuscular Hemoglobin 25.1 pg (28.0-33.3); Mean Corpuscular Volume 80.8 fL (83.0-100.0); Monocytes # 0.6 K/mcL (0.0-1.3); Monocytes % 6.8 %; Neutrophils # 6.6 K/mcL (1.6-8.9); Platelet Count 332 K/mcL (140-400); Red Blood Count 4.26 M/mcL (4.19-5.50); Red Cell Distribution Width 16.7 % (11.5-14.5); Segmented Neutrophils % 78.1 %
[2017-02-06 09:47] LABS: Calcium 8.6 mg/dL (8.6-10.3); Potassium 3.9 mEq/L (3.5-5.1)
[2017-02-06 10:22] VITALS: BP 151/77
[2017-02-06] MEDS: Tiotropium 18 MCG inhalation IH SCH (11:33)
--- NOTE | 2017-02-06 13:02 | Discharge Summary ---
Date of Encounter: 02/06/17 Time of Encounter: 11:00 - Discharge Diagnosis (1) Community acquired pneumonia Priority: Primary Status: Acute Qualifiers: Laterality: unspecified laterality Qualified Code(s): J18.9 - Pneumonia, unspecified organism (2) Diabetes mellitus Priority: Secondary Status: Chronic Qualifiers: Diabetes mellitus type: type 2 Diabetes mellitus complication status: without complication Diabetes mellitus correction insulin use: with rat exterminator use Qualified Code(s): E11.9 - Type 2 diabetes mellitus without complications ; Z79.4 - prison (current) use of insulin; Z79.4 - joint terminal attack controller (current) use of insulin; Z79.4 - joint terminal attack controller (current) use of insulin; Z79.4 - joint terminal attack controller ( current) use of insulin (3) Hypertension Priority: Secondary Status: Chronic Qualifiers: Hypertension type: essential hypertension Qualified Code(s): I10 - Essential (primary) hypertension (4) Pleural effusion Priority: Secondary Status: Acute - Discharge Medications Prescriptions: levoFLOXacin [Levaquin] 750 mg PO DAILY #7 tablet Home Medications: Albuterol Neb [Proventil Neb] 2.5 mg IH TID 02/03/17 [History] Albuterol Sulfate [Proair Hfa] 2 puff IH Q4H PRN 02/03/17 [History] Aspirin Enteric Coated [Aspirin EC] 81 mg PO DAILY 02/03/17 [History] Budesonide/Formoterol 160/4.5 [Symbicort 160/4.5] 2 puff IH BIDR 02/03/17 [ History] Cetirizine HCl [Zyrtec] 10 mg PO DAILY 02/03/17 [History] Cholecalciferol (D-3) [Vitamin D] 2,000 unit PO DAILY 02/03/17 [History] Furosemide [Lasix] 20 mg PO BID 02/03/17 [History] Guaifenesin [Mucinex] 600 mg PO Q12H PRN 02/03/17 [History] Insulin Glargine,Hum.rec.anlog [Lantus Solostar] 80 unit SQ DAILY 02/03/17 [ History] Losartan Potassium [Cozaar] 50 mg PO DAILY 02/03/17 [History] Metoprolol [Lopressor] 12.5 mg PO BID 02/03/17 [History] Pantoprazole Sodium [Protonix] 40 mg PO DAILY 02/03/17 [History] Pravastatin Sodium [Pravachol] 20 mg PO HS 02/03/17 [History] SitaGLIPtin [Januvia] 100 mg PO DAILY 02/03/17 [History] Tamsulosin [Flomax] 0.4 mg PO DAILY 02/03/17 [History] Tiotropium [Spiriva] 18 mcg IH 0700 02/03/17 [History] Warfarin [Coumadin] 2 mg PO 1800 02/03/17 [History] glyBURIDE [GlyBURIDE] 10 mg PO BIDWM 02/03/17 [History] levoFLOXacin [Levaquin] 750 mg PO DAILY #7 tablet 02/06/17 [Rx] Allergies/Adverse Reactions: 3 Allergy/AdvReac Type Severity Reaction Status Date / Time No Known Allergies Allergy Verified 02/03/17 15:58 Procedures/tests Complete & Pending: Procedures Performed prior 72 hours Category Date Time Status CT chest wo con [CT] Routine Cat Scan 02/05/17 18:58 Completed EV limited echocardiogram Routine Y 02/04/17 13:23 Completed Date of admission: 02/03/17 20:19 Primary care physician: Hans Tee Consults: 02/03/17 21:34 Consult to Speech Therapy [CONS] Routine Comment: Evaluate, develop and implement POC Reason for Consult: swallow eval r/o aspiration Time Notified: 21:35 Call Completed: No 02/03/17 22:49 Consult to Cardiology [CONS] Routine Comment: Consulting Provider: Cardiology Makayla Reason for Consult: elevated troponin Time Notified: 22:50 Call Completed: No 02/04/17 11:40 Consult to Physical Therapy [CONS] Routine Comment: Evaluate, develop and implement POC Reason for Consult: dificulty walking OT [Consult to Occupational Therapy] [CONS] Routine Comment: Evaluate, develop and implement POC Reason for Consult: dificulty walking 02/04/17 11:42 Consult to Medical Insurance Claims Specialist [CONS] Routine Reason for SW Consult: possible home health - Patient Status Disposition: Home, Self-Care Condition: Fair - Discharge Instructions Follow Up With: Hans Tee DO [Primary Care Provider] - 02/17/17 2:15 pm Hospital course: Patient is a 81-year-old male with past medical history significant for CHF, COPD non-oxygen dependent status post CABG approximately 6 years ago, atrial fibrillation on Coumadin, diabetes, hyperlipidemia and hypertension who presented to the ER on 02/03/17 with shortness of breath. Patient reported of experiencing shortness of breath with exertion over the last several days prior to admission in addition to fevers with a temp of 102. Patient also reported of productive cough with greenish sputum. He was seen by primary care provider and was treated with doxycycline with no relief in symptoms. Patient decided come to the ER for evaluation. In the ER, patient was found to have bilateral mild pleural effusion in addition to lower lung base consolidation on chest x-ray. Patient was admitted for community acquired pneumonia. During patients hospital stay his symptoms improved with treatment on IV azithromycin and Zosyn. CT scan of the chest was done which showed stable right pleural effusion which has actually decreased in size. Patient will be discharged to complete a seven-day course of Levaquin and to follow up with primary care provider. - Time Spent with Patient Total time spent providing and/or coordinating discharge services: Less than 30 minutes - Constitutional Vitals: Temp Pulse Resp BP Pulse Ox 98.2 F 92 15 151/77 93 02/06/17 10:20 02/06/17 10:20 02/06/17 11:35 02/06/17 10:20 02/06/17 11:35 General appearance: Present: A&O X 3, morbidly obese, no acute distress - Respiratory Respiratory exam: Present: CTAB. Absent: accessory muscle use, rales, rhonchi, wheezes - Cardiovascular Cardiovascular exam: Present: RRR, +S1, +S2. Absent: diastolic murmur, gallop, rubs, systolic murmur
[2017-02-06] MEDS ORDERED: *HR* Warfarin 1 MG TABLET PO ONE (18:00)
== END 2017-02-06 13:35 | disposition home or self-care (01) | DRG 194 ==
LOC: EMEROO 15:53 → 3BNU 15:53 → SUATTDRO 20:19
PROVIDERS: ADMIT Internal Medicine; ATTEND Hospitalist

== ENCOUNTER 2019-01-22 10:53 | Inpatient (IN) ==
[2019-01-22] MEDS ORDERED: methylPREDNISolone 125 MG/2 ML VIAL IVP ONE (11:06)
[2019-01-22] MEDS ORDERED: Ipratropium/Albuterol Neb 3 ML IH ONE (11:06)
[2019-01-22 11:29] LABS: Basophils % 0.3 %; Hematocrit 40.5 % (37.5-50.1); Hemoglobin 13.2 g/dL (12.9-16.9); Immature Granulocytes % 0.3 % (0-4); Lymphocytes # 0.5 K/mcL (0.6-4.6); Lymphocytes % 6.6 %; Mean Corpuscular HGB Conc 32.6 g/dL (31.6-35.5); Mean Corpuscular Hemoglobin 27.1 pg (28.0-33.3); Mean Corpuscular Volume 83.2 fL (83.0-100.0); Monocytes # 0.6 K/mcL (0.0-1.3); Monocytes % 8.3 %; Neutrophils # 6.5 K/mcL (1.6-8.9); Platelet Count 225 K/mcL (140-400); Red Blood Count 4.87 M/mcL (4.19-5.50); Red Cell Distribution Width 15.7 % (11.5-14.5); Segmented Neutrophils % 84.5 %; White Blood Count 7.6 K/mcL (4.3-11.1)
[2019-01-22] MEDS ORDERED: Furosemide 40 MG/4 ML VIAL IVP ONE (11:45)
[2019-01-22 11:50] LABS: Calcium 9.4 mg/dL (8.6-10.3); Magnesium 1.9 mg/dL (1.6-2.6); Potassium 3.9 mEq/L (3.5-5.1)
[2019-01-22 11:53] LABS: Troponin I 0.07 ng/mL (< 0.04)
[2019-01-22 12:05] LABS: INR 1.9; Prothrombin Time 21.9 Seconds (9.4-12.1)
[2019-01-22] MEDS ORDERED: Azithromycin 500 MG in 0.9 % Sodium Chloride 250 ML IVPB ONE (12:14)
[2019-01-22] MEDS ORDERED: Ondansetron 4 MG/2 ML VIAL IVP PRN (13:29)
[2019-01-22] MEDS ORDERED: Naloxone 0.4 MG/ML INJ IVP PRN (13:29)
[2019-01-22] MEDS ORDERED: D5% in Water 1,000 ML IVC PRN (13:33)
[2019-01-22] MEDS ORDERED: Dextrose Gel 15 GM/37.5 ML TUBE PO PRN ×2 (13:33)
[2019-01-22] MEDS ORDERED: *HR* Dextrose 50 % in Water (Syg) 50 ML SYRINGE IVP PRN (13:33)
[2019-01-22] MEDS: Ipratropium/Albuterol Neb 3 ML IH SCH ×2 (16:31→20:44)
[2019-01-22] MEDS: MethylPREDNISolone 40 MG/ML VIAL IVP SCH (17:24)
[2019-01-22] MEDS: Insulin LISPRO 300 UNITS/3 ML VIAL SQ SCH ×2 (17:24→21:32)
[2019-01-22 17:43] LABS: Adenovirus Not Detected (Not Detect); Bordetella Pertussis Not Detected (Not Detect); Chlamydophila pneumoniae Not Detected (Not Detect); Coronavirus 229E Not Detected (Not Detect); Coronavirus HKU1 Not Detected (Not Detect); Coronavirus NL63 Not Detected (Not Detect); Coronavirus OC43 Not Detected (Not Detect); Human Metapneumovirus DETECTED (Not Detect); Human Rhinovirus/Enterovirus Not Detected (Not Detect); Influenza A Subtype 2009 H1 Not Detected (Not Detect); Influenza A Untypeable Not Detected (Not Detect); Influenza B Not Detected (Not Detect); Mycoplasma pneumoniae Not Detected (Not Detect); Parainfluenza Virus 1 Not Detected (Not Detect); Parainfluenza Virus 2 Not Detected (Not Detect); Parainfluenza Virus 3 Not Detected (Not Detect); Parainfluenza Virus 4 Not Detected (Not Detect); Respiratory Syncytial Virus Not Detected (Not Detect)
[2019-01-22] MEDS ORDERED: *HR* Warfarin 3 MG TABLET PO ONE (18:00)
[2019-01-22] MEDS ORDERED: Warfarin perPT PO PRN (18:00)
[2019-01-22] MEDS ORDERED: Insulin DETEMIR 100 UNIT/ML X5UNITS SQ SCH (21:00)
[2019-01-23] MEDS: Ipratropium/Albuterol Neb 3 ML IH SCH ×7 (00:18→23:29)
[2019-01-23 02:29] LABS: INR 2.1; Prothrombin Time 23.9 Seconds (9.4-12.1)
[2019-01-23 02:49] LABS: Basophils % 0.2 %; Hematocrit 37.5 % (37.5-50.1); Hemoglobin 12.1 g/dL (12.9-16.9); Immature Granulocytes % 0.8 % (0-4); Lymphocytes # 0.3 K/mcL (0.6-4.6); Lymphocytes % 5.8 %; Mean Corpuscular HGB Conc 32.3 g/dL (31.6-35.5); Mean Corpuscular Hemoglobin 27.3 pg (28.0-33.3); Mean Corpuscular Volume 84.7 fL (83.0-100.0); Mean Platelet Volume 10.4 fL (9.4-12.4); Monocytes # 0.1 K/mcL (0.0-1.3); Monocytes % 2.6 %; Neutrophils # 4.6 K/mcL (1.6-8.9); Platelet Count 186 K/mcL (140-400); Red Blood Count 4.43 M/mcL (4.19-5.50); Red Cell Distribution Width 15.4 % (11.5-14.5); Segmented Neutrophils % 90.6 %
[2019-01-23 03:10] LABS: Calcium 9.1 mg/dL (8.6-10.3); Potassium 3.9 mEq/L (3.5-5.1)
[2019-01-23] MEDS: MethylPREDNISolone 40 MG/ML VIAL IVP SCH ×2 (06:10→17:05)
[2019-01-23] MEDS: Budesonide/Formoterol 160/4.5 1 PUFF INH IH SCH ×2 (07:20→19:53)
[2019-01-23] MEDS: Loratadine 10 MG TABLET PO SCH (07:46)
[2019-01-23] MEDS: Finasteride 5 MG TABLET PO SCH (07:46)
[2019-01-23] MEDS: Aspirin Enteric Coated 81 MG Tablet PO SCH (07:46)
[2019-01-23] MEDS: Insulin LISPRO 300 UNITS/3 ML VIAL SQ SCH ×4 (08:03→21:10)
[2019-01-23] MEDS ORDERED: Furosemide 40 MG/4 ML VIAL IVP SCH (09:00)
[2019-01-23 11:45] LABS: Acinetobacter baumannii by PCR Not Detected (Not Detect); Candida albicans by PCR Not Detected (Not Detect); Candida glabrata by PCR Not Detected (Not Detect); Candida krusei by PCR Not Detected (Not Detect); Candida parapsilosis by PCR Not Detected (Not Detect); Candida tropicalis by PCR Not Detected (Not Detect); Enterobacter cloacae Cmplx PCR Not Detected (Not Detect); Enterobacteriaceae by PCR Not Detected (Not Detect); Enterococcus by PCR Not Detected (Not Detect); Escherichia coli by PCR Not Detected (Not Detect); Klebsiella oxytoca by PCR Not Detected (Not Detect); Klebsiella pneumoniae by PCR Not Detected (Not Detect); Proteus by PCR Not Detected (Not Detect); Pseudomonas aeruginosa by PCR Not Detected (Not Detect); Serratia marcescens by PCR Not Detected (Not Detect); Staphylococcus aureus by PCR Not Detected (Not Detect); Staphylococcus by PCR DETECTED (Not Detect); Streptococcus agalactiae(B)PCR Not Detected (Not Detect); Streptococcus by PCR Not Detected (Not Detect); Streptococcus pneumoniae PCR Not Detected (Not Detect); Streptococcus pyogenes (A) PCR Not Detected (Not Detect); mecA Methicillin-Resist Gene DETECTED (Not Detect)
[2019-01-23] MEDS: Azithromycin 500 MG in 0.9 % Sodium Chloride 250 ML IVPB SCH (12:04)
[2019-01-23] MEDS ORDERED: *HR* Warfarin 2 MG TABLET PO ONE (18:00)
[2019-01-23] MEDS ORDERED: Furosemide 20 MG TABLET PO SCH (21:00)
[2019-01-23] MEDS: Insulin DETEMIR 100 UNIT/ML X5UNITS SQ SCH (21:10)
[2019-01-24 02:00] LABS: Hematocrit 38.1 % (37.5-50.1); Hemoglobin 12.4 g/dL (12.9-16.9); Mean Corpuscular HGB Conc 32.5 g/dL (31.6-35.5); Mean Corpuscular Hemoglobin 27.6 pg (28.0-33.3); Mean Corpuscular Volume 84.9 fL (83.0-100.0); Mean Platelet Volume 10.8 fL (9.4-12.4); Platelet Count 236 K/mcL (140-400); Red Blood Count 4.49 M/mcL (4.19-5.50); Red Cell Distribution Width 15.5 % (11.5-14.5)
[2019-01-24 02:03] LABS: INR 2.9; Prothrombin Time 32.8 Seconds (9.4-12.1); White Blood Count 11.2 K/mcL (4.3-11.1)
[2019-01-24 02:23] LABS: Calcium 9.4 mg/dL (8.6-10.3)
[2019-01-24] MEDS: Ipratropium/Albuterol Neb 3 ML IH SCH ×6 (03:50→23:00)
[2019-01-24] MEDS: Budesonide/Formoterol 160/4.5 1 PUFF INH IH SCH ×2 (07:20→19:32)
[2019-01-24] MEDS: Aspirin Enteric Coated 81 MG Tablet PO SCH (07:57)
[2019-01-24] MEDS: Finasteride 5 MG TABLET PO SCH (07:57)
[2019-01-24] MEDS: Loratadine 10 MG TABLET PO SCH (07:57)
[2019-01-24] MEDS: Insulin DETEMIR 100 UNIT/ML X5UNITS SQ SCH ×2 (07:58→21:04)
[2019-01-24] MEDS: Insulin LISPRO 300 UNITS/3 ML VIAL SQ SCH ×4 (07:58→21:05)
[2019-01-24] MEDS: predniSONE 20 MG TABLET PO SCH (08:08)
[2019-01-24] MEDS ORDERED: Furosemide 40 MG/4 ML VIAL IVP SCH (09:00)
[2019-01-24] MEDS: Azithromycin 500 MG in 0.9 % Sodium Chloride 250 ML IVPB SCH (12:45)
[2019-01-24] MEDS: Albumin 25% 25gram/100mL 25 GM/100 ML IV.SOLN IVPB SCH (16:16)
[2019-01-24] MEDS: Furosemide 40 MG/4 ML VIAL IVP SCH (17:40)
[2019-01-24 22:21] LABS: Protein/Creatinine Ratio,Urine 0.35 mg/mg (0.00-0.20); Sodium, Urine 56.9 mEq/L
[2019-01-24 22:31] LABS: Bilirubin,Urine Negative (Negative); Blood,Urine Negative (Negative); Clarity,Urine Clear (Clear); Color,Urine Yellow (Yellow); Glucose,Urine (UA) 500 mg/dL (Normal); Ketones,Urine Negative (Negative); Leukocyte Esterase,Urine Negative (Negative); Nitrite,Urine Negative (Negative); PH,Urine 5.5 pH Units (5.0-8.0); Protein,Urine Negative (Neg-Trace); Specific Gravity,Urine 1.017 (1.010-1.025); Urobilinogen,Urine Normal (Normal)
[2019-01-25] MEDS: Ipratropium/Albuterol Neb 3 ML IH SCH ×6 (04:12→23:47)
[2019-01-25 06:44] LABS: Hematocrit 39.8 % (37.5-50.1); Hemoglobin 12.3 g/dL (12.9-16.9); Mean Corpuscular HGB Conc 30.9 g/dL (31.6-35.5); Mean Corpuscular Hemoglobin 27.4 pg (28.0-33.3); Mean Corpuscular Volume 88.6 fL (83.0-100.0); Mean Platelet Volume 10.5 fL (9.4-12.4); Platelet Count 239 K/mcL (140-400); Red Blood Count 4.49 M/mcL (4.19-5.50); Red Cell Distribution Width 15.8 % (11.5-14.5); White Blood Count 7.6 K/mcL (4.3-11.1)
[2019-01-25 06:48] LABS: INR 2.4; Prothrombin Time 27.4 Seconds (9.4-12.1)
[2019-01-25 07:08] LABS: Calcium 9.6 mg/dL (8.6-10.3); Potassium 3.6 mEq/L (3.5-5.1)
[2019-01-25] MEDS: Budesonide/Formoterol 160/4.5 1 PUFF INH IH SCH ×2 (07:56→20:01)
[2019-01-25] MEDS: Insulin LISPRO 300 UNITS/3 ML VIAL SQ SCH ×4 (08:22→22:08)
[2019-01-25] MEDS: Aspirin Enteric Coated 81 MG Tablet PO SCH (08:22)
[2019-01-25] MEDS: Finasteride 5 MG TABLET PO SCH (08:22)
[2019-01-25] MEDS: Loratadine 10 MG TABLET PO SCH (08:22)
[2019-01-25] MEDS: predniSONE 20 MG TABLET PO SCH (08:22)
[2019-01-25] MEDS: Albumin 25% 25gram/100mL 25 GM/100 ML IV.SOLN IVPB SCH ×2 (08:23→17:22)
[2019-01-25] MEDS: Furosemide 40 MG/4 ML VIAL IVP SCH ×2 (08:23→17:21)
[2019-01-25] MEDS: Insulin DETEMIR 100 UNIT/ML X5UNITS SQ SCH ×2 (12:14→22:09)
[2019-01-25] MEDS: Azithromycin 500 MG in 0.9 % Sodium Chloride 250 ML IVPB SCH (12:20)
[2019-01-25] MEDS ORDERED: *HR* Warfarin 2 MG TABLET PO ONE (18:00)
[2019-01-26] MEDS: Ipratropium/Albuterol Neb 3 ML IH SCH ×6 (04:10→23:14)
[2019-01-26 05:43] LABS: Hematocrit 38.5 % (37.5-50.1); Hemoglobin 12.1 g/dL (12.9-16.9); Mean Corpuscular HGB Conc 31.4 g/dL (31.6-35.5); Mean Corpuscular Volume 85.9 fL (83.0-100.0); Mean Platelet Volume 10.3 fL (9.4-12.4); Platelet Count 213 K/mcL (140-400); Red Blood Count 4.48 M/mcL (4.19-5.50); Red Cell Distribution Width 15.8 % (11.5-14.5); White Blood Count 6.3 K/mcL (4.3-11.1)
[2019-01-26 05:45] LABS: INR 2.3; Prothrombin Time 26.3 Seconds (9.4-12.1)
[2019-01-26 06:03] LABS: Calcium 9.7 mg/dL (8.6-10.3); Potassium 3.7 mEq/L (3.5-5.1)
[2019-01-26] MEDS: Budesonide/Formoterol 160/4.5 1 PUFF INH IH SCH ×2 (07:11→19:39)
[2019-01-26] MEDS: Albumin 25% 25gram/100mL 25 GM/100 ML IV.SOLN IVPB SCH ×2 (09:14→17:23)
[2019-01-26] MEDS: predniSONE 20 MG TABLET PO SCH (09:16)
[2019-01-26] MEDS: Loratadine 10 MG TABLET PO SCH (09:16)
[2019-01-26] MEDS: Finasteride 5 MG TABLET PO SCH (09:16)
[2019-01-26] MEDS: Aspirin Enteric Coated 81 MG Tablet PO SCH (09:16)
[2019-01-26] MEDS: Furosemide 40 MG/4 ML VIAL IVP SCH ×2 (09:18→19:07)
[2019-01-26] MEDS: Insulin DETEMIR 100 UNIT/ML X5UNITS SQ SCH ×2 (09:24→21:06)
[2019-01-26] MEDS: Insulin LISPRO 300 UNITS/3 ML VIAL SQ SCH ×7 (09:26→21:06)
[2019-01-26] MEDS: Azithromycin 500 MG in 0.9 % Sodium Chloride 250 ML IVPB SCH (12:40)
[2019-01-26] MEDS: MethylPREDNISolone 40 MG/ML VIAL IVP SCH (17:25)
[2019-01-26] MEDS ORDERED: *HR* Warfarin 2 MG TABLET PO ONE (18:00)
[2019-01-27 02:15] LABS: Basophils % 0.2 %; Hematocrit 37.4 % (37.5-50.1); Hemoglobin 11.9 g/dL (12.9-16.9); INR 2.2; Immature Granulocytes % 0.8 % (0-4); Lymphocytes # 0.3 K/mcL (0.6-4.6); Lymphocytes % 4.7 %; Mean Corpuscular HGB Conc 31.8 g/dL (31.6-35.5); Mean Corpuscular Hemoglobin 27.4 pg (28.0-33.3); Mean Platelet Volume 10.7 fL (9.4-12.4); Monocytes # 0.2 K/mcL (0.0-1.3); Monocytes % 2.7 %; Neutrophils # 5.8 K/mcL (1.6-8.9); Platelet Count 219 K/mcL (140-400); Prothrombin Time 24.8 Seconds (9.4-12.1); Red Blood Count 4.35 M/mcL (4.19-5.50); Red Cell Distribution Width 15.8 % (11.5-14.5); Segmented Neutrophils % 91.6 %; White Blood Count 6.3 K/mcL (4.3-11.1)
[2019-01-27 02:36] LABS: Calcium 10.1 mg/dL (8.6-10.3); Magnesium 2.1 mg/dL (1.6-2.6); Phosphorous 3.9 mg/dL (2.7-4.5); Potassium 4.2 mEq/L (3.5-5.1)
[2019-01-27] MEDS: Ipratropium/Albuterol Neb 3 ML IH SCH ×5 (04:03→20:14)
[2019-01-27] MEDS: MethylPREDNISolone 40 MG/ML VIAL IVP SCH ×2 (05:15→18:51)
[2019-01-27] MEDS: Budesonide/Formoterol 160/4.5 1 PUFF INH IH SCH ×2 (07:40→20:14)
[2019-01-27] MEDS: Insulin LISPRO 300 UNITS/3 ML VIAL SQ SCH ×6 (09:22→22:24)
[2019-01-27] MEDS: Albumin 25% 25gram/100mL 25 GM/100 ML IV.SOLN IVPB SCH (09:24)
[2019-01-27] MEDS: Insulin DETEMIR 100 UNIT/ML X5UNITS SQ SCH (09:28)
[2019-01-27] MEDS: Aspirin Enteric Coated 81 MG Tablet PO SCH (09:28)
[2019-01-27] MEDS: Finasteride 5 MG TABLET PO SCH (09:28)
[2019-01-27] MEDS: Loratadine 10 MG TABLET PO SCH (09:29)
[2019-01-27] MEDS: Azithromycin 250 MG TABLET PO SCH (15:08)
[2019-01-27] MEDS: Furosemide 40 MG/4 ML VIAL IVP SCH (15:12)
[2019-01-27] MEDS ORDERED: *HR* Warfarin 2 MG TABLET PO ONE (18:00)
[2019-01-27] MEDS ORDERED: Insulin DETEMIR 100 UNIT/ML X5UNITS SQ SCH (21:00)
[2019-01-28] MEDS: Ipratropium/Albuterol Neb 3 ML IH SCH ×7 (00:17→23:38)
[2019-01-28 06:39] LABS: INR 2.6; Prothrombin Time 29.9 Seconds (9.4-12.1)
[2019-01-28 06:45] LABS: Magnesium 2.3 mg/dL (1.6-2.6); Phosphorous 4.1 mg/dL (2.7-4.5); Potassium 4.4 mEq/L (3.5-5.1)
[2019-01-28] MEDS: MethylPREDNISolone 40 MG/ML VIAL IVP SCH (06:49)
[2019-01-28] MEDS: Budesonide/Formoterol 160/4.5 1 PUFF INH IH SCH ×2 (07:28→19:48)
[2019-01-28] MEDS ORDERED: Furosemide 40 MG/4 ML VIAL IVP SCH (09:00)
[2019-01-28] MEDS: Finasteride 5 MG TABLET PO SCH (10:03)
[2019-01-28] MEDS: Azithromycin 250 MG TABLET PO SCH (10:03)
[2019-01-28] MEDS: Loratadine 10 MG TABLET PO SCH (10:03)
[2019-01-28] MEDS: Aspirin Enteric Coated 81 MG Tablet PO SCH (10:03)
[2019-01-28] MEDS: Insulin DETEMIR 100 UNIT/ML X5UNITS SQ SCH ×2 (10:04→20:17)
[2019-01-28] MEDS: Insulin LISPRO 300 UNITS/3 ML VIAL SQ SCH ×7 (10:04→20:17)
[2019-01-28] MEDS: Furosemide 20 MG TABLET PO SCH (17:38)
[2019-01-28] MEDS ORDERED: *HR* Warfarin 3 MG TABLET PO ONE (18:00)
[2019-01-29] MEDS: Ipratropium/Albuterol Neb 3 ML IH SCH ×3 (04:06→11:17)
[2019-01-29 04:26] LABS: INR 2.9; Prothrombin Time 32.8 Seconds (9.4-12.1)
[2019-01-29 04:38] LABS: Calcium 9.5 mg/dL (8.6-10.3); Magnesium 2.3 mg/dL (1.6-2.6); Phosphorous 3.9 mg/dL (2.7-4.5); Potassium 3.6 mEq/L (3.5-5.1)
[2019-01-29] MEDS: Insulin LISPRO 300 UNITS/3 ML VIAL SQ SCH ×4 (07:30→12:05)
[2019-01-29] MEDS: Insulin DETEMIR 100 UNIT/ML X5UNITS SQ SCH (07:30)
[2019-01-29 07:31] VITALS: BP 132/77
[2019-01-29] MEDS: Budesonide/Formoterol 160/4.5 1 PUFF INH IH SCH (07:31)
[2019-01-29] MEDS ORDERED: predniSONE 20 MG TABLET PO SCH (09:00)
[2019-01-29] MEDS: Finasteride 5 MG TABLET PO SCH (12:03)
[2019-01-29] MEDS: Aspirin Enteric Coated 81 MG Tablet PO SCH (12:03)
[2019-01-29] MEDS: Loratadine 10 MG TABLET PO SCH (12:03)
[2019-01-29] MEDS: Azithromycin 250 MG TABLET PO SCH (12:04)
[2019-01-29] MEDS: Furosemide 20 MG TABLET PO SCH (12:04)
== END 2019-01-29 15:15 | disposition home health service (06) | DRG 291 ==
LOC: 2NENU 10:53 → EMEROOARM 10:53 → SUATTDRO 13:17 → 2NENU 14:52 → SUATTDRO 01-23 11:51
PROVIDERS: ADMIT Internal Medicine; ATTEND Internal Medicine